=== PATIENT | female | born 1960 | race Caucasian/White ===

== ENCOUNTER → 2020-05-25 | Day surgery (SDC) | payer BC ==
[~2020-05-25] MED LIST: LIDOCAINE 1% INJ 20 ML 20 ML VIAL INJ ONE
--- NOTE | 2020-05-25 13:18 | Diagnostic Imaging Report ---
Indication: Thyroid nodules. Patient presents for ultrasound guided fine-needle aspiration biopsy. Patient brought to the procedure room and placed on table in the supine position. Ultrasound imaging of the neck was performed. No discrete nodule was identified in the right lobe on today's study. There is right lobe parenchymal heterogeneity but no discrete mass is seen. In addition, the more posteriorly located nodule noted on prior exam in the left lobe is not well-seen on today's study and tends to blend in with surrounding thyroid tissue. Therefore, the decision was made to perform fine-needle aspiration of the more anteriorly located 2 cm nodule in the left lobe. The neck was prepped and draped in usual sterile fashion. Small amount 1% lidocaine was utilized for local anesthesia. A total of 4 passes were made into the left lobe thyroid nodule anteriorly utilizing 25-gauge needles and fine-needle aspiration technique. A single pass was made with a Rotex needle and Rotex biopsy was performed. Hemostasis was obtained using manual compression. Patient tolerated procedure well left department in stable condition. IMPRESSION: Successful ultrasound guided fine-needle aspiration and Rotex biopsy of left lobe thyroid nodule, as described. Pathology results are currently pending. Dictated by: Dictated on workstation # [id number]
== END | disposition home or self-care (01) ==
LOC: RAD 10:00
PROVIDERS: ATTEND Internal Medicine Endocrinology, Diabetes & Metabolism
DX: E04.1 Nontoxic single thyroid nodule (principal)
CPT/HCPCS: 10005; 88173

== ENCOUNTER 2020-12-29 05:34 | Outpatient (CLI) | payer BC ==
[~2020-12-29] VITALS: Ht 170.2 cm; Wt 89.3 kg
[2020-12-29] MEDS ORDERED: MV-M1TAB20 PO (09:29)
[2020-12-29] MEDS ORDERED: ASCO-262 PO (09:29)
[2020-12-29] MEDS ORDERED: LORA10TA7 PO (09:29)
[2020-12-29] MEDS ORDERED: ZINC50TA51 PO (09:29)
[2020-12-29] MEDS ORDERED: MULT-1136 PO (09:29)
== END 2020-12-29 10:02 | disposition home or self-care (01) ==
LOC: PREOP 05:34
PROVIDERS: ATTEND Surgery
DX: Z01.818 Encounter for other preprocedural examination (principal)

== ENCOUNTER 2021-01-05 06:42 | Day surgery (SDC) | payer BC ==
[~2021-01-05] VITALS: Ht 170.2 cm; Wt 89.3 kg
[~2021-01-05 06:42] MED LIST changes: +ASCO-262 PO; -LIDOCAINE 1% INJ 20 ML 20 ML VIAL INJ ONE; +LORA10TA7 PO; +MULT-1136 PO; +MV-M1TAB20 PO; +ZINC50TA51 PO
[2021-01-05] MEDS ORDERED: LACTATED RINGERS 1,000 ML IV STA (07:05)
[2021-01-05] MEDS ORDERED: LACTATED RINGERS 1,000 ML IV ONE (07:09)
[2021-01-05 07:22] VITALS: BP 107/85
[2021-01-05] MEDS ORDERED: PROPOFOL INJECTION 50 ML IV ONE (07:40)
[2021-01-05 08:30] VITALS: BP 103/69
--- NOTE | 2021-01-05 08:30 | Anesthesia-General Post-Op ---
MAC Patient Condition Mental Status/LOC: Same as Preop Cardiovascular: Satisfactory Nausea/Vomiting: Absent Respiratory: Satisfactory Pain: Controlled Complications: Absent Post Op Complications Complications None Follow Up Care/Instructions Patient Instructions None needed. Anesthesiology Discharge Order Discharge Order Patient is doing well, no complaints, stable vital signs, no apparent adverse anesthesia problems. No complications reported per nursing. CRIS VILLELA CRNA Jan 05, 2021 08:30
--- NOTE | 2021-01-05 08:32 | Progress Note-Post Operative ---
Post-Operative Progess Note Surgeon (s)/Senior Windows Systems Administrator (s) Surgeon IJEOMA YATES DO Senior Windows Systems Administrator: na Pre-Operative Diagnosis screening colonoscopy Post-Operative Diagnosis colon polyps Procedure & Operative Findings Date of Procedure 01/05/21 Procedure Performed/Findings colonoscopy c hot bx polypectomy x 4 Anesthesia Type per ui lead developer Estimated Blood Loss Estimated blood loss (mL): none Specimens/Packing Specimens Removed sigmoid and rectum x 3 IJEOMA YATES DO Jan 05, 2021 08:32
--- NOTE | 2021-01-05 08:33 | Discharge Inst-Simple/Standard ---
Discharge Inst-Standard Patient Instructions/Follow Up Plan of Care/Instructions/FU: 2 weeks Jaclyn Activity as Tolerated: Yes Discharge Diet: Regular Diet IJEOMA YATES DO Jan 05, 2021 08:33
[2021-01-05 08:35] VITALS: BP 107/72
[2021-01-05 08:50] VITALS: BP 110/78
[2021-01-05 08:58] VITALS: BP 110/78
--- NOTE | 2021-01-05 16:21 | OPERATIVE REPORT ---
DATE OF SERVICE: 01/05/2021 PREOPERATIVE DIAGNOSIS: Screening colonoscopy. POSTOPERATIVE DIAGNOSIS: Colon polyps. PROCEDURE: Colonoscopy with hot biopsy polypectomy x4. SURGEON: Ijeoma Anaya DO ANESTHESIA: Per FURNACE UTILITY OPERATOR. ESTIMATED BLOOD LOSS: None. COMPLICATIONS: None. INDICATIONS: The patient is a 60-year-old female needing screening colonoscopy. She understands risks and benefits and wishes to proceed. Consent was signed in the chart. DESCRIPTION OF PROCEDURE: The patient was taken to the endoscopy suite, placed in left lateral recumbent position. Timeout was performed. Digital rectal exam was performed. No palpable polyps, masses or ulcerations. Scope was inserted into the rectum and advanced all the way to cecum with minimal difficulty. Prep was adequate. Scope was slowly retracted back. No polyps, masses or ulcerations in the cecum, ascending, transverse and sigmoid colon. In the sigmoid colon, a small polyp was present, which hot biopsy polypectomy was performed. Scope was continued back into the rectum where there was 3 other small polyps, which hot biopsy polypectomies were performed. Scope was retroflexed noting no other pathology. Scope was returned to its normal position, slowly withdrawn until completely removed. The patient tolerated procedure well without any complications, taken to recovery room in stable condition. RECOMMENDATIONS: The patient will need repeat colonoscopy in 5 years. Any issues before that be seen at that time. The patient will follow up on pathology in couple of weeks in the office. Job ID: [id number] DocumentID: [id number] Dictated Date: 01/05/2021 08:35:41 Master Control Supervisor Date: 01/05/2021 16:20:49 Dictated By: IJEOMA ANAYA DO
== END 2021-01-05 08:55 | disposition home or self-care (01) ==
LOC: ENDO 06:42
PROVIDERS: ATTEND Surgery
DX: Z12.11 Encounter for screening for malignant neoplasm of colon (principal); D12.5 Benign neoplasm of sigmoid colon; D12.8 Benign neoplasm of rectum; Z79.899 Other long term (current) drug therapy